=== PATIENT | female | born 1965 | race Caucasian/White ===

== ENCOUNTER → 2024-11-27 11:13 | Outpatient (REF) | payer OTHER, SELFPAY ==
[2024-11-27 14:14] LABS: Hepatitis B Surface Antibody Positive
[2024-11-28 19:16] LABS: Rubella Positive
[2024-11-29 06:48] LABS: Quantiferon Plus TB1 minus NIL 0.01 IU/mL (<=0.34); Quantiferon Plus TB2 minus NIL 0.03 IU/mL (<=0.34); Quantiferon TB Gold Plus Negative (Negative)
[2024-11-29 13:26] LABS: Mumps Virus IgG Positive; Rubeola (Measles) IgG Positive; Varicella Zoster IgG (VZV) Positive
== END ==
LOC: OHS 11:13
PROVIDERS: ATTENDING PHYSICIAN Nurse Practitioner Family
DX: Z23 Encounter for immunization (principal)
CPT/HCPCS: 36415; 86480; 86706; 86735; 86762; 86765; 86787